=== PATIENT | female | born 1940 | race Two or more races ===

== ENCOUNTER 2018-05-20 08:30 | Outpatient (CLI) | payer OTHER | END 2018-05-20 08:41 | disposition home or self-care (01) | LOC: SONOGRAMA 08:30 | DX: E04.2 Nontoxic multinodular goiter (principal) ==

== ENCOUNTER 2018-10-25 08:11 | Outpatient (CLI) | payer OTHER | END 2018-10-25 08:13 | disposition home or self-care (01) | LOC: SONOGRAMA 08:11 | DX: E04.1 Nontoxic single thyroid nodule (principal) ==